=== PATIENT | male | born 1985 | race African-American/Black ===

== ENCOUNTER 2017-09-03 02:06 | Emergency (ER) | payer SELFPAY ==
[2017-09-03] MEDS ORDERED: Ondansetron HCl/PF 4 MG/2 ML Vial ONE ×2 (02:18→02:23)
[2017-09-03] MEDS ORDERED: EPINEPHrine 1 MG/ML AMP ONE (02:31)
[2017-09-03] MEDS ORDERED: Dexamethasone 20 MG/5 ML VIAL ONE (02:31)
[2017-09-03] MEDS ORDERED: Famotidine/PF 20 mg/2ml Vial ONE (02:33)
[2017-09-03 02:41] LABS: Band 13 % (5-11); Eosinophils 2 % (0-10); Lymphocytes 23 % (21-51); MDiff Complete? YES; Mean Corpuscular HGB CONC 32.3 g/dL (32.0-36.0); Mean Corpuscular Hemoglobin 28.1 pg (27.0-31.0); Mean Corpuscular Volume 86.8 fl (80.0-94.0); Mean Platelet Volume 9.3 fL (7.4-10.4); Monocytes 4 % (0-10); Neutrophil 55 % (42-75); PLT Morphology Comment Appears Adequate; Platelet Count 278 thou/uL (130-400); RBC Distribution Width 11.9 % (11.5-14.5); RBC Morphology Normal; Reactive Lymphocytes 3 % (0-10); Red Blood Cell (RBC) Count 5.36 mill/uL (4.70-6.10); White Blood Cell (WBC) Count 11.4 thou/uL (4.8-10.8)
[2017-09-03 02:43] LABS: ALT (SGPT) 12 U/L (8-55); AST (SGOT) 19 U/L (5-34); Albumin 4.7 g/dL (3.5-5.0); Alkaline Phosphatase 116 U/L (40-150); Anion Gap 18 mmol/L (10-20); BUN (Urea Nitrogen) 12 mg/dL (8.9-20.6); Bilirubin, Total 0.8 mg/dL (0.2-1.2); Calc. Creatinine Clearance 0 mL/min (70-130); Calcium 9.9 mg/dL (7.8-10.44); Carbon Dioxide 24 mmol/L (22-29); Chloride 103 mmol/L (98-107); Estimated GFR-MDRD 90; Globulin 4.1 g/dL (2.4-3.5); Glucose 118 mg/dL (70-105); Protein, Total 8.8 g/dL (6.0-8.3); Sodium 142 mmol/L (136-145)
[2017-09-03 02:47] LABS: Potassium 2.7 mmol/L (3.5-5.1)
[2017-09-03] MEDS ORDERED: Potassium Chloride 20 MEQ/100 ML PREMIX BAG ONE (03:00)
[2017-09-03 03:43] LABS: Anion Gap 20 mmol/L (10-20); BUN (Urea Nitrogen) 12 mg/dL (8.9-20.6); Calc. Creatinine Clearance 0 mL/min (70-130); Calcium 9.9 mg/dL (7.8-10.44); Carbon Dioxide 23 mmol/L (22-29); Chloride 102 mmol/L (98-107); Estimated GFR-MDRD Greater than 90; Glucose 117 mg/dL (70-105); Magnesium 1.6 mg/dL (1.6-2.6); Sodium 142 mmol/L (136-145)
[2017-09-03 03:45] LABS: Potassium 2.7 mmol/L (3.5-5.1)
[2017-09-03] MEDS ORDERED: Magnesium Sulfate 2 GM/NS 0.9% 50 ML BAG ONE (04:31)
[2017-09-03 06:09] LABS: Anion Gap 15 mmol/L (10-20); BUN (Urea Nitrogen) 10 mg/dL (8.9-20.6); Calc. Creatinine Clearance 0 mL/min (70-130); Calcium 9.1 mg/dL (7.8-10.44); Carbon Dioxide 23 mmol/L (22-29); Chloride 105 mmol/L (98-107); Estimated GFR-MDRD Greater than 90; Glucose 139 mg/dL (70-105); Magnesium 2.5 mg/dL (1.6-2.6); Sodium 140 mmol/L (136-145)
[2017-09-03] MEDS ORDERED: methylPREDNISolone Sod Succ/PF 125 MG/2 ML VIAL ONE (07:43)
--- NOTE | 2017-09-03 08:12 | RAD ---
AP VIEW CHEST: HISTORY: Dyspnea. FINDINGS: AP view chest is obtained on 09/03/17. AP view chest demonstrates the lungs to be well aerated. No evidence of active intrathoracic diseas e seen. No evidence of effusions, pneumonia, or pneumothorax seen. IMPRESSION: Unremarkable AP view chest. POS: [facility]
--- NOTE | 2017-09-03 08:21 | CT ---
PRELIMINARY REPORT/[facility]/EMERGENCY AFTER HOURS PROCEDURE: EXAM: CT Neck With Intravenous Contrast CLINICAL HISTORY: 32 years old, male; Pain and signs and symptoms; Dyspnea / difficulty breathing; Throat pain; Patien t HX: Pt. States that woke up this morning with feeling of mild sore throat. Reports that over the course of the day, he no longer feels sore throat, but feels itching in the throat, and sensation li ke something stuck in the throat. This is accompanied by N\T\V nonbloody material, and pt. Reports d ifficulty breathing due to the sensation. He says he ate chicken around 1800, but does not think it got stuck. Reports now unable to swallow liquids. TECHNIQUE: Axial computed tomography images of the neck with intravenous contrast. All CT scans at this facilit y use one or more dose reduction techniques, viz.: automated exposure control; ma/Kv adjustment per patient size (including targeted exams where dose is matched to indication; i.e. head); or iterative reconstruction technique. Coronal and sagittal reformatted images were created and reviewed. CONTRAST: 96 mL of ISOVUE 370 administered intravenously. COMPARISON: No relevant prior studies available. FINDINGS: Nasopharynx: Normal. Oropharynx: Normal. No significant tonsillar enlargement. No peritonsillar abscess. Hypopharynx: Hypopharyngeal motion artifact. Grossly unremarkable. Larynx: Unremarkable. Normal epiglottis. Trachea: Normal. Retropharyngeal space: Normal. Submandibular/parotid glands: Normal. Glands are normal in size. Thyroid: Normal. Bones/joints: Unremarkable. No acute fracture. Soft tissues: No radiopaque foreign body detected. Vasculature: Unremarkable. Lymph nodes: Multilevel subcentimeter cervical lymph nodes. Dental: Carious bilateral mandibular second molars with mild periapical lucency. Lung apices: Unremarkable. IMPRESSION: No acute findings. Thank you for allowing us to participate in the care of your patient. Dictated and Authenticated by: Tomi Betancourt MD 09/03/2017 5:22 AM Central Time ([place] \T\ Ap) FINAL REPORT NECK CT WITH CONTRAST: DATE: 09/03/17. COMPARISON: None. HISTORY: Throat itching, sore throat, nausea and vomiting, dyspnea. FINDINGS: I agree with the preliminary [facility] report. Evaluation of bilateral lung apices is grossly unremarka ble, limited secondary to motion artifact. Motion artifact limits assessment of the supraglottic ai rway and region of the glottis, especially at the level of the hyoid bone and thyroid cartilage, lik atif on the basis of swallowing during imaging. The imaged paranasal sinuses/mastoid air cells demon strate polypoid mucosal thickening within the alveolar recess of the maxillary sinus on the right. The parapharyngeal and retroantral fat appears grossly unremarkable. The parotid and submandibular glands appear grossly unremarkable. Region of the epiglottis is grossly unremarkable. No mass lesion or lymphadenopathy noted. IMPRESSION: Motion limited examination with no acute finding seen. POS: [facility]
[2017-09-03] MEDS ORDERED: Iopamidol 370 76% 100 ML VIAL ONE (09:00)
== END 2017-09-03 09:20 | disposition home or self-care (01) ==
LOC: NAV ERS 02:06
DX: K52.9 Noninfective gastroenteritis and colitis, unspecified (principal); E87.6 Hypokalemia; E83.42 Hypomagnesemia; R06.00 Dyspnea, unspecified
CPT/HCPCS: 70491; 71010; 80053; 83735; 85025; 93005; 96361; 96365; 96366; 96372; 96375; J0171; J1100; J1610; J2405; J2930; J3475; J3480; S0028